=== PATIENT | female | born 1975 | race African-American/Black ===

== ENCOUNTER → 2018-10-14 | Outpatient (CLI) | payer BC ==
[~2018-10-14] VITALS: Ht 170.2 cm; Wt 50.8 kg
[~2018-10-14] MED LIST: ALDACTONE100 MG PO; AMITRIPTYLINE H10 M3 PO; DOXEPIN 10 MG C10 MG PO; MEDROLDOSEPACK PO; MOBIC15 MG PO
--- NOTE | ~2018-10-14 | HPC ---
[facility] [address] [place] [address] PAIN MANAGEMENT CONSULTATION Name: GIDEON VALLE [facility] #: [facility] [id number] Admission: 10/14/18 ������������������ Attend Phys: Megan Dai MD Discharge: ������������������ Date of : 77 Report #: [id number] THIS REPORT FOR: //name// CC: Megan Packer DATE OF SERVICE: 10/14/2018 CHIEF COMPLAINT: Neck pain. HISTORY: The patient is a 43-year-old female, who has been referred to the pain clinic because of pain and discomfort. She states that she is having pain in the right side of her neck. She has been having problems since 10/2005. She states that the pain that she is having is waxed and waned. She once injured while practicing defensive tactics and fell landing on her neck. About 2 years ago, she started to notice worsening of her pain. It has been persistent at this juncture. Cold air causes some increased stiffness. Prolonged sitting can intensify her discomfort. She notes that the pain is problematic and causes problems with sleeping. She sometimes awaken because of discomfort. Activities of daily living such as cleaning, standing, cleaning up top can all cause worsening of pain. She has used ibuprofen, finds that this is helpful. She has not tried any muscle relaxants. She is not having significant pain down into her fingers at this juncture. She notes that the pain can be problematic when she looks up. She has difficulty looking over her right shoulder. She notes increased pain with tension in the right shoulder area. PAST MEDICAL HISTORY: Chronic neck pain, cervical spine subluxation, stomach problems, and asthma. PAST SURGICAL HISTORY: None. CURRENT MEDICATIONS: Doxepin 10 mg, spironolactone 100 mg. ALLERGIES: No known drug allergies. SOCIAL HISTORY: She works as a state highway police officer. She is working at this juncture. REVIEW OF SYSTEMS: Generally in good health, decreased appetite, wears glasses, asthma, and insomnia. PAIN CLINIC ASSESSMENT AND PQRS: 1. History of osteoarthritic change in her right shoulder. The patient is not being treated for rheumatoid arthritis. 2. Pain intensity is 2/10. 3. Fall risk. The patient has not fallen in the last [address] [address] PAIN MANAGEMENT CONSULTATION Name: GIDEON VALLE Room #: REG [facility].#: [id number] Admission: 10/14/18 ������������������ Attend Phys: Megan Dai MD Discharge: ������������������ Date of : 77 Report #: [id number] 4. Blood thinner. The patient is not on a blood thinning medication. 5. Hypertension. The patient is not being treated for hypertension. 6. Opioids greater than 6 weeks. The patient is not on an opioid regimen. 7. Risk assessment tool, low for opioid use. 8. Functional assessment tool, . 9. Recreational drug use. The patient denies use of recreational drugs. 10. Tobacco: The patient has never smoked. 11. Alcohol: The patient denies frequent use of alcoholic beverages. PHYSICAL EXAMINATION: GENERAL: The patient is well-developed, thin, black female, who appears her stated age. She is alert and oriented x 3. Affect is appropriate. Speech is fluent. Height is 5 feet 7 inches, weight is 112 pounds, BMI is 17.5. VITAL SIGNS: Blood pressure is 101/62, pulse is 68, respiratory rate is 14, and room air saturation is 100%. HEENT: Normocephalic, atraumatic. Extraocular eye muscles intact. Sclerae nonicteric. Mucous membranes are moist. NECK: Without adenopathy or JVD. HEART: Regular rate. ABDOMEN: Nontender. Bowel sounds present. EXTREMITIES: Upper extremity muscle strength is judged to be 5/5 for the major muscle groups. Deep tendon reflexes are +2 for the biceps, +1 for the triceps and brachioradialis bilaterally. The patient complains of some pain in the right side. Rotation of her neck to the right to look over her shoulder is limited and causes increased pain and discomfort. Cervical compression with the patient rotated head to the right or Spurling maneuver was negative. She did have some soreness in the neck area. There was no pain radiating down into her arm. Lower extremity muscle strength is judged to be 5/5 for the major muscle groups. The patient is without significant scoliosis, kyphosis, or lordosis. Deep tendon reflexes are +2 at the knees bilaterally and trace at the ankles. Forward bending was not problematic. Lumbar extension was not problematic. Anterior and posterior spring test was negative. LABORATORY DATA: No new laboratory values are available. IMAGING DATA: The patient did bring old x-rays, which did show some subluxation at about C5-C6 of her neck. IMPRESSION: 1. Right-sided neck pain. 2. History of asthma. RECOMMENDATIONS: We have discussed treatment options with the patient. She does have pain in her neck. She is not having pain radiating down into her arms with numbness or tingling. At this juncture, we will try a conservative approach. The patient will be given Elavil. This medication can be helpful [address] [address] PAIN MANAGEMENT CONSULTATION Name: GIDEON VALLE Room #: REG [facility] [place]#: [id number] Admission: 10/14/18 ������������������ Attend Phys: Megan Dai MD Discharge: ������������������ Date of : 77 Report #: [id number] with pain reduction as well as can be beneficial and help with the patient's sleep. We will start at 10 mg of the medication. We will increase it as she is able to tolerate it. We will also have the patient take a nonsteroidal anti-inflammatory medication. She will take meloxicam. This medication can be taken once a day, I think she finds beneficial. We will also have her take a Medrol Dosepak. A script for these medications have been provided. She will call us if she has any concerns. We would like to thank you for letting us to participate in her care. We hope she continues to improve. ��������������������������������������������� ���������������������������������������� By: ��������������������������������������������� [id number] Megan Dai MD /DYANA
[2018-10-14 08:28] VITALS: BP 101/62
--- NOTE | 2018-10-14 08:48 | NUR ---
Pain Clinic Assessment: 1. History of Osteoarthritis: RIGHT SHOULDER History of Rheumatoid Arthritis: 2. Height: 5 ft. 7 in. 170.2 cm. Weight: 112.0 lb. oz. 50.803 kg. Patient's BMI: 17.5 3. Vital Signs: BP: 101/62 Pulse: 68 Resp: 14 Temp: 02 Sat: 100 ECG Mon: 4. Pain Intensity: 2 5. Fall Risk: Dizziness: N Needs help standing or walking: N Fallen in the last 3 months: N Fall risk comments: 6. Patient on Blood Thinner: None 7. History of Hypertension: N 8. Opioid Therapy greater than 6 weeks: N Opiate Contract Signed: 9. Risk Assessment Tool Provided: 10. Functional Assessment Tool: 11. Recreational Drug Use: Never Drug Type: Tobacco Use: Never Smoker Tobacco Type: Amount or Packs/day: How Many Years: Alcohol Use: No Frequency: Quant:
== END ==
LOC: PAIN 06:51
DX: M54.2 Cervicalgia (principal); J45.909 Unspecified asthma, uncomplicated

== ENCOUNTER → 2018-11-11 | Outpatient (CLI) | payer BC ==
[~2018-11-11] VITALS: Ht 170.2 cm; Wt 48.5 kg
[~2018-11-11] MED LIST changes: +METHOCARBAMOL500 M2 PO
--- NOTE | ~2018-11-11 | HPC ---
[facility] [address] [place] [address] PAIN MANAGEMENT CONSULTATION Name: GIDEON VALLE Room #: REG [facility] Jose#: [id number] Admission: 11/11/18 ������������������ Attend Phys: Megan Dai MD Discharge: ������������������ Date of : 77 Report #: [id number] THIS REPORT FOR: //name// CC: Megan Packer DATE OF SERVICE: 11/11/2018 CHIEF COMPLAINT: "Pain has improved with the medicines." HISTORY: The patient is a 43-year-old female. She has been seen in the Pain Clinic because of pain and discomfort involving her right neck. She has been having the problems since 2016. Pain has waxed and waned. She injured it initially after falling on her neck while doing some defensive tactics. She was started last week on a regimen of meloxicam and amitriptyline. She feels that these medications have been helpful. She feels that she is getting more sleep, having less muscle soreness. Particularly, she feels that the meloxicam medication is helpful. She has not had any problems with it. She does not have any problems with her stomach. She has pain, which she rates as a 3 at this point, it still involves her right side and her neck. She feels that there is less muscle tightness and the medication is beneficial. ALLERGIES: No known drug allergies. CURRENT MEDICATIONS: Doxepin 10 mg, spironolactone 100 mg, Elavil 10 mg at bedtime, meloxicam 15 mg daily. PAIN CLINIC ASSESSMENT AND PQRS: 1. History of osteoarthritis: The patient has some osteoarthritic changes she feels in her shoulder. She is not being treated for rheumatoid arthritis. 2. Pain intensity: 3/10. 3. Fall history: The patient has not fallen in the last 3 months. 4. Blood thinner: The patient is not on a blood thinning medication. 5. Hypertension: The patient is not being treated for hypertension. 6. Opioids greater than 6 weeks: The patient is not on an opioid regimen. 7. Risk assessment tool: Low for opioid use. 8. Functional assessment tool: . 9. Recreational drug use: The patient denies use of recreational drugs. 10. Tobacco: The patient has never smoked. 11. Alcohol: The patient denies use of alcoholic beverages. PHYSICAL EXAMINATION: GENERAL: The patient is a well-developed, well-nourished, very thin, black female. She appears her stated age. She is alert and oriented x 3. Affect is appropriate. Speech is fluent. HEENT: Normocephalic, atraumatic. Extraocular eye muscles intact. Sclerae [facility] [address] [place] [address] PAIN MANAGEMENT CONSULTATION Name: GIDEON VALLE Room #: REG [facility] Garcia#: [id number] Admission: 11/11/18 ������������������ Attend Phys: Megan Dai MD Discharge: ������������������ Date of : 77 Report #: [id number] nonicteric. Mucous membranes are moist. NECK: Without adenopathy or JVD. The patient does have some soreness in the neck area, less so than at the previous visit. Still has some discomfort with turning her head from one side to the next. Also notes some worsening of pain when she sits in one position for too long. Notes that the pain is improved with rest and continues to do stretching exercises. EXTREMITIES: Upper extremity muscle strength is judged to be generally 5/5 for the major muscle groups in the upper extremity. Lower extremity muscle strength is 5/5 for the major muscle groups in the lower extremity. IMPRESSION: 1. Right-sided neck pain. 2. History of asthma. RECOMMENDATIONS: We discussed treatment options with the patient. The patient does not have cervical radicular pain at this juncture. She does have some pain in her arms involving the shoulder area. Certain movements exacerbate the pain. At this point, she feels that the Elavil medication is helpful. She is not having any hangover or untoward complications. We would recommend that she increase the Elavil to two 10 mg tablets at bedtime, this will be 20 mg daily. She can also continue with the meloxicam. I think that her use of these medications as well as continue to stretch will be beneficial. She will call us if she has any concerns. Hopefully, she will continue to improve as time goes on. We would like to thank you for letting us participate in her care. ��������������������������������������������� ���������������������������������������� By: ��������������������������������������������� [phone] Megan Dai MD /nt
[2018-11-11 09:17] VITALS: BP 123/71
--- NOTE | 2018-11-11 09:20 | NUR ---
Pain Clinic Assessment: 1. History of Osteoarthritis: RIGHT SHOULDER History of Rheumatoid Arthritis: Not Applicable 2. Height: 5 ft. 7 in. 170.2 cm. Weight: 107.0 lb. oz. 48.535 kg. Patient's BMI: 16.8 3. Vital Signs: BP: 123/71 Pulse: 73 Resp: 16 Temp: 02 Sat: 100 ECG Mon: 4. Pain Intensity: 3 5. Fall Risk: Dizziness: N Needs help standing or walking: N Fallen in the last 3 months: N Fall risk comments: 6. Patient on Blood Thinner: None 7. History of Hypertension: N 8. Opioid Therapy greater than 6 weeks: N Opiate Contract Signed: 9. Risk Assessment Tool Provided: mod-5 10. Functional Assessment Tool: 11. Recreational Drug Use: Never Drug Type: Tobacco Use: Never Smoker Tobacco Type: Amount or Packs/day: How Many Years: Alcohol Use: No Frequency: Quant:
== END ==
LOC: PAIN 06:47
DX: M54.2 Cervicalgia (principal); M19.90 Unspecified osteoarthritis, unspecified site; I10 Essential (primary) hypertension; Z87.09 Personal history of other diseases of the respiratory system

== ENCOUNTER → 2019-02-17 | Outpatient (CLI) | payer BC ==
[~2019-02-17] VITALS: Ht 170.2 cm; Wt 49.9 kg
--- NOTE | ~2019-02-17 | HPC ---
[facility] [address] [address] PAIN MANAGEMENT CONSULTATION Name: GIDEON VALLE Room #: REG [facility] M..#: [id number] Admission: 02/17/19 Attend Phys: Yoon Lang Discharge: Date of : 77 Report #: [id number] THIS REPORT FOR: //name// CC: Yoon Lang Harjit Packer DATE OF SERVICE: 02/17/2019 CHIEF COMPLAINT: Right neck pain. HISTORY OF PRESENT ILLNESS: This is a pleasant 43-year-old female who returns to the pain clinic today for refill of her medications that she uses to help treat her ongoing right neck pain. She tells me that the pain comes and goes. When it does flare she takes her muscle relaxants and rest at home. She continues to take her meloxicam and amitriptyline and finds these very beneficial. Her pain currently does not radiate into her shoulder or into her arm. It is fairly localized on the right side of her neck. The patient is here for refill for these medications. Placing her current pain score at 0 currently. ALLERGIES: No known drug allergies. CURRENT LIST OF MEDICATIONS: Meloxicam 15 mg daily, amitriptyline 20 mg at bedtime, methocarbamol 500 mg p.r.n., doxepin 10 mg daily and spironolactone 100 mg daily. PQRS: 1. She has a history of osteoarthritis in her right shoulder. Denies any rheumatoid arthritis. 2. Height is 5 feet 7 inches, weight is 110 and BMI is 17. 3. Vital signs 96/71, pulse is 93, respirations 12, oxygen sat is 100. 4. Pain score is 0. 5. Denies dizziness, does not need help walking or standing, has not fallen in the last 3 months. 6. The patient is not on any blood thinners, does not take medicine for hypertension. 7. No opioids presently. Risk assessment tool is moderate. Functional assessment is 20/70. 8. Recreational drug use she denies. She is not a smoker and does not drink alcohol. We did not check the prescription monitoring system. The patient is not on any opioids. PHYSICAL EXAMINATION: GENERAL: This is a well-developed, well-nourished, very thin black female who [address] [address] PAIN MANAGEMENT CONSULTATION Name: GIDEON VALLE Room #: REG [facility] Jose#: [id number] Admission: 02/17/19 Attend Phys: Yoon Lang Discharge: Date of : 77 Report #: [id number] appears her stated age. She is alert and orientated, placing her current pain score at 0 today. HEENT: Normocephalic, atraumatic. Extraocular eye muscles are intact. Mucous membranes are moist. NECK: Without adenopathy or JVD. She has tenderness in the neck area on the right side with no radicular symptoms. Rotation of her neck to the right does cause increased pain and discomfort. Her deep tendon reflexes are 2+ for her biceps and 1+ for the triceps. Her upper extremity strength judged to be 5/5 for major muscle groups. IMPRESSION: 1. Right-sided neck pain. 2. History of asthma. RECOMMENDATIONS: 1. We discussed treatment options with the patient today. I think it is reasonable to continue the patient on her current medications. She continues to have no cervical radicular symptoms. It is very localized which the amitriptyline and meloxicam are very beneficial with occasional methocarbamol. She recently had received her methocarbamol from her primary care doctor. I explained to her that I was willing to write one prescription of this then she needed to follow up with that medication with her primary care office. 2. Scripts given for meloxicam 15 mg 1 tablet daily, #30 with 5 additional refills, amitriptyline 10 mg tablets 2 at bedtime, #60 with 5 additional refills and methocarbamol 500 mg, #60 with no refills. 3. The patient will be followed up in 6 months. I explained to her that she may see her primary care doctor for these medications if she wishes. We did talk about tapering the medications to see if the pain returns. If it does not, then she may stay off these medications as well. The patient verbalizes understanding. 4. The patient is seen in collaboration today with Dr. Franki Dai. By: [id number] Yoon Lang /priscilla
[2019-02-17 09:36] VITALS: BP 96/71
--- NOTE | 2019-02-17 09:43 | NUR ---
Pain Clinic Assessment: 1. History of Osteoarthritis: RIGHT SHOULDER History of Rheumatoid Arthritis: Not Applicable 2. Height: 5 ft. 7 in. 170.2 cm. Weight: 110.0 lb. oz. 49.896 kg. Patient's BMI: 17.2 3. Vital Signs: BP: 96/71 Pulse: 93 Resp: 12 Temp: 02 Sat: 100 ECG Mon: 4. Pain Intensity: 0 5. Fall Risk: Dizziness: N Needs help standing or walking: N Fallen in the last 3 months: N Fall risk comments: 6. Patient on Blood Thinner: None 7. History of Hypertension: N 8. Opioid Therapy greater than 6 weeks: N Opiate Contract Signed: 9. Risk Assessment Tool Provided: mod-5 10. Functional Assessment Tool: 11. Recreational Drug Use: Never Drug Type: Tobacco Use: Never Smoker Tobacco Type: Amount or Packs/day: How Many Years: Alcohol Use: No Frequency: Quant:
== END ==
LOC: PAIN 06:42
DX: M54.2 Cervicalgia (principal); J45.909 Unspecified asthma, uncomplicated

== ENCOUNTER → 2019-06-04 | Outpatient (CLI) | payer BC | LOC: BC 09:13 | DX: Z12.31 Encounter for screening mammogram for malignant neoplasm of breast (principal) ==

== ENCOUNTER → 2020-12-26 | Outpatient (CLI) | payer OTHER | LOC: CAT 11:14 | PROVIDERS: ATTEND Family Medicine | DX: Z13.6 Encounter for screening for cardiovascular disorders (principal); E78.00 Pure hypercholesterolemia, unspecified; I25.10 Atherosclerotic heart disease of native coronary artery without angina pectoris ==

== ENCOUNTER → 2021-04-06 | Outpatient (CLI) | payer BC | LOC: ULTRA 13:44 | PROVIDERS: ATTEND Nurse Practitioner | DX: N83.201 Unspecified ovarian cyst, right side (principal); N88.8 Other specified noninflammatory disorders of cervix uteri; N92.0 Excessive and frequent menstruation with regular cycle; R10.2 Pelvic and perineal pain ==

== ENCOUNTER → 2021-05-30 | Outpatient (CLI) | payer BC | LOC: ULTRA 05-28 16:36 | PROVIDERS: ATTEND Nurse Practitioner | DX: N83.291 Other ovarian cyst, right side (principal); N83.202 Unspecified ovarian cyst, left side; N88.8 Other specified noninflammatory disorders of cervix uteri ==